=== PATIENT | female | born 1980 | race Hispanic/Latino ===

== ENCOUNTER 2023-12-16 13:25 | Emergency (ER) | payer SELFPAY ==
--- NOTE | 2023-12-16 13:48 | ED.WOUNDLAC ---
HPI - Wound/Laceration General Chief Complaint: Wound/Laceration Stated Complaint: R FOREARM LACERATION Time Seen by Provider: 12/16/23 14:13 Source: patient and other (friend at bedside) Mode of arrival: ambulatory Limitations: language barrier ( patient refused interpreting service. Friend at bedside to help interpret) History of Present Illness HPI narrative: 43-year-old patient presents to [facility] with complaint of laceration to right mid dorsal forearm. 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 While putting items on a shelf above her head, patient dropped a glass bowl with a glass lid. Patient endorses that the lid broke when it struck her arm and caused a laceration. 5cm laceration to right mid dorsal forearm with 3cm skin tear. Bleeding controlled upon arrival. Patient endorses no history of tetanus. Patient denies tingling, numbness, decreased range of motion. Patient does endorse pain at the laceration site. Patient has not treated prior to arrival. Related Data Home Medications Medication Instructions Recorded Confirmed No Home Medications 12/16/23 12/16/23 Allergies Allergy/AdvReac Type Severity Reaction Status Date / Time No Known Allergies Allergy Verified 12/16/23 13:32 Review of Systems Review of Systems: All systems reviewed & are unremarkable except as noted in HPI and below Constitutional: Constitutional: Reports no additional constitutional complaints Eyes: Eyes: Reports no additional eye complaints ENT: Reports system reviewed and no additional complaints, except as documented Cardiovascular: Cardiovascular: Reports no additional cardiovascular complaints, Denies chest pain and Denies dyspnea Respiratory: Respiratory: Reports no additional respiratory complaints, Denies cough and Denies dyspnea Musculoskeletal: Musculoskeletal: Reports no additional musculoskeletal complaints Neurologic: Reports system reviewed and no additional complaints, except as documented Psychiatric: Psychiatric: Reports no additional psychiatric complaints PMFSH Comments At the time of my signature, I reviewed and agree with the nursing past medical, surgical, social, and family history. There is no relevant family history pertinent to the patient complaint. 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 Friend at bedside helped interpret ) HENMT: Head: normal to inspection Ears: external ears normal Face/Nose/Sinus: Normal external nose present, Normal nares present, normal facial exam, No erythema and No edema Face and sinus: normal facial exam, no erythema and no edema Mouth: Yes Normal oral and palatal mucosa present Eyes: General: appearance normal, both eyes and all related structures Neck: Neck: normal visual inspection, full ROM and no meningeal signs Lymphatic: no lymphadenopathy noted and no lymphedema noted Chest: Chest palpation & inspection: normal inspection of the chest Resp: Effort & Inspection: normal respiratory effort and able to speak in complete sentences Auscultation: clear to auscultation bilaterally Cardio: Jugular venous distension: no JVD Rate: regular rate Rhythm: regular rhythm Peripheral pulses: radial pulses present and ulnar radial pulses present Back/Spine/Pelvis: Cervical Spine: cervical ROM normal Skin: General skin exam: normal color, no rashes or lesions noted and turgor normal Neuro: General: patient oriented x3, gait normal, moves all extremities and no meningeal signs Speech: normal speech Gait exam (Neuro): Normal gait present Extrem: General: normal to inspection, full ROM and capillary refill normal Right upper extremity: full ROM, normal capillary refill, elbow/forearm tender
[2023-12-16 13:59] VITALS: BP 118/74; PULSE 95; RESP 16; TEMP 36.8; O2SAT 100
[2023-12-16] MEDS: TETANUS,DIPHTHERIA,AC PERTUSSIS ADULT (0.5 ML) BOOSTRIX IM (15:59)
--- NOTE | 2023-12-16 16:00 | PC.NURSE ---
Boostrix was scanned in patient room, but forgot to click the last save. Patient was discharged when I discovered this.
== END 2023-12-16 15:13 | disposition home or self-care (01) ==
PROVIDERS: Emergency Provider Nurse Practitioner Family
DX: S51.811A Laceration without foreign body of right forearm, initial encounter (principal); W25.XXXA Contact with sharp glass, initial encounter; Y99.0 Civilian activity done for income or pay; Z23 Encounter for immunization
CPT/HCPCS: 12002; 90471; 90715; 99212; G0463

== ENCOUNTER 2023-12-26 18:40 | Emergency (ER) | payer SELFPAY ==
--- NOTE | 2023-12-26 18:44 | ED.WOUNDLAC ---
HPI - Wound/Laceration General Chief Complaint: Wound/Laceration Stated Complaint: Stitches Removal Time Seen by Provider: 12/26/23 18:43 Source: patient Mode of arrival: ambulatory Limitations: no limitations History of Present Illness HPI narrative: Selene is a 43-year-old female patient presenting to clinic today for suture removal. Has laceration to the mid dorsal forearm that occurred on December 15. She denies any concerns. Related Data Home Medications Medication Instructions Recorded Confirmed No Home Medications 12/16/23 12/26/23 Allergies Allergy/AdvReac Type Severity Reaction Status Date / Time No Known Allergies Allergy Verified 12/16/23 13:32 Review of Systems Review of Systems: Pertinent positives per HPI. Patient denies any fever, chills, rash, headache, visual changes, dizziness, cough, runny nose, sore throat, shortness of breath, chest pain, palpitations, nausea, vomiting, diarrhea, constipation, abdominal pain, or any urinary issues. PMFSH Comments At the time of my signature, I reviewed and agree with the nursing past medical, surgical, social, and family history. There is no relevant family history pertinent to the patient complaint. Exam Narrative: General: Well-developed, well nourished, in no apparent distress Head: Normocephalic, atraumatic. Cardio: Regular rate and rhythm, s1 and s2 normal, no murmur appreciated. Resp: Clear to auscultation bilaterally, no rhonchi, rales, wheezing or rubs. Integumentary: [place], warm, and dry, sutures were removed from the right forearm and wound appears to be healing well. Will apply Steri-Strips over the wound and have the patient keep these in place into the fall off on their own. Course Course Emergency Course: Portions of this record may have been created with voice recognition software. Level of Care: Express Care Visit Vital Signs Vital signs: Vital signs reviewed MDM - Wound/Laceration MDM Narrative Medical decision making narrative: At the time of visit patient is resting comfortably on the exam table. Patient appears to be nontoxic. Plan: Sutures removed in the Express Care today. Steri-Strips were applied. supportive measures were discussed with the patient and they voiced understanding discharge instructions and agrees to treatment plan. Return precautions reviewed Differential Diagnosis Differential diagnosis: Likely laceration, abscess, abrasion and avulsion of skin Discharge Plan Discharge Clinical Impression: Encounter for removal of sutures, Skin wound closed with sterile strip Patient Disposition: Home, Self-Care Condition: Stable Instructions: Antibiotic Form, Laceration (ED), Steristrips (ED), Stitches Removal (ED) Additional Instructions: 4 suturas interrumpidas retiradas en la cl?maci hoy Mantenga Steri-Strips en garcia lugar rachel el mayor tiempo posible No las retire; permita que las Steri-Strips se caigan solas. Izzy un seguimiento con garcia m?dico de atenci?n primaria seg?n sea necesario. Mantenga la herida limpia y seca Est? atento a los signos y s?ntomas de infecci?n: enrojecimiento, mariia, hinchaz?n, secreci?n purulenta o aumento del dolor Patient Language: [place] Prescriptions: No Action No Home Medications Follow-up/Referrals: UNKNOWN,DOCTOR [Non-Staff] - Time of Disposition: 19:09 Quality NIHSS Nursing Documentation ED NIHSS nursing documentation: reviewed/agree
[2023-12-26 18:47] VITALS: BP 118/83; PULSE 86; RESP 16; TEMP 36.6; O2SAT 100
== END 2023-12-26 19:12 | disposition home or self-care (01) ==
PROVIDERS: Emergency Provider Nurse Practitioner Family
DX: S51.811D Laceration without foreign body of right forearm, subsequent encounter (principal); X58.XXXD Exposure to other specified factors, subsequent encounter
CPT/HCPCS: 99211; G0463

== ENCOUNTER 2024-03-06 15:08 | Emergency (ER) | payer SELFPAY ==
[2024-03-06 15:23] VITALS: BP 122/85; PULSE 88; RESP 16; TEMP 36.9; O2SAT 100
--- NOTE | 2024-03-06 15:29 | ECG_ITS ---
SEE SCANNED COPY FOR CONFIRMED REPORT MTDD
--- NOTE | 2024-03-06 15:53 | ED.GENADULT ---
HPI - General Adult General Chief complaint: Chest Pain Stated complaint: chest pain into back left side Time Seen by Provider: 03/06/24 15:54 Source: patient, RN notes reviewed and old records reviewed Mode of arrival: ambulatory Limitations: no limitations History of Present Illness HPI narrative: 43-year-old female presents to the [facility] with worsening pain to the left chest, left flank this since Tuesday, 2 days ago. Patient does report nausea, shortness of breath especially with deep breathing. Offered a design center consultant, patient declined wanting to use her family member Patient appears mildly uncomfortable Onset (ago): day(s) (2) Related Data Home Medications Medication Instructions Recorded Confirmed No Home Medications 12/16/23 03/06/24 Allergies Allergy/AdvReac Type Severity Reaction Status Date / Time No Known Allergies Allergy Verified 03/06/24 15:18 Review of Systems Review of Systems: All systems reviewed & are unremarkable except as noted in HPI and below Constitutional: Constitutional: Reports no additional constitutional complaints Eyes: Eyes: Reports no additional eye complaints ENT: Reports system reviewed and no additional complaints, except as documented Cardiovascular: Cardiovascular: Reports as per HPI, Reports chest pain and Reports dyspnea Respiratory: Respiratory: Reports no additional respiratory complaints, Denies chest congestion, Denies cough and Denies dyspnea Gastrointestinal: Gastrointestinal: Reports no additional gastrointestinal complaints, Denies abdominal pain, Denies nausea and Denies vomiting Genitourinary: Genitourinary: Reports as per HPI and Denies dysuria Musculoskeletal: Musculoskeletal: Reports as per HPI Integumentary/Breasts: Skin/Breast: Reports system reviewed and no additional complaints, except as docu Neurologic: Reports system reviewed and no additional complaints, except as documented Psychiatric: Psychiatric: Reports no additional psychiatric complaints Allergic/Immunologic: Allergic/Immunologic: Reports no additional allergic/immunologic complaints PMFSH Past Medical History Medical History Patient denies medical problems Surgical History Surgical History No pertinent past surgical history Social History Social History Living arrangements: with family Gender identity (if verbalized by the patient): Female Comments At the time of my signature, I reviewed and agree with the nursing past medical, surgical, social, and family history. There is no relevant family history pertinent to the patient complaint. Exam Const: General: cooperative, no acute distress, well developed, alert, acute distress moderate (Pain), ill appearing acutely, uncomfortable and well nourished Nutritional Appearance: well nourished Orientation/consciousness: patient oriented x3 Limitations: no limitations HENMT: Head: normal to inspection Ears: hearing grossly normal bilaterally and external ears normal Face/Nose/Sinus: Normal external nose present, Normal nares present, Normal nasal mucous membranes and turbinates present, normal facial exam and face symmetric Face and sinus: normal facial exam and face symmetric Eyes: General: appearance normal, both eyes and all related structures Alignment and Position: alignment normal Periorbital: periorbital findings normal Pupils: Equal, round and reactive pupils present EOM: EOMs intact bilaterally Neck: Neck: normal visual inspection, full ROM, no lymphadenopathy and no meningeal signs Chest: Chest palpation & inspection: normal inspection of the chest Resp: Effort & Inspection: normal respiratory effort and able to speak in complete sentences Auscultation: clear to auscultation bilaterally, no crackles, no rales, no rhonchi and no wheezes Cardio:
== END 2024-03-06 16:10 | disposition short-term general hospital (02) ==
PROVIDERS: Emergency Provider Nurse Practitioner
DX: R10.9 Unspecified abdominal pain (principal); R07.9 Chest pain, unspecified
CPT/HCPCS: 81003; 93005; 99213; G0463

== ENCOUNTER 2024-03-06 16:25 | Observation (INO) | payer SELFPAY ==
--- NOTE | ~2024-03-06 | XR_ITS ---
EXAMINATION: XR chest 2V DATE: 03/06/2024 16:47 INDICATION: Left-sided chest pain TECHNIQUE: PA and lateral views of the chest were obtained. COMPARISON: None FINDINGS: The lungs are clear with no focal airspace opacities, pulmonary edema, pleural effusion or pneumothor ax. The cardiomediastinal silhouette is normal. Mild thoracic dextrocurvature with mild spondylosis. IMPRESSION: 1. No acute cardiopulmonary disease. Reviewed, dictated and finalized at location A.
--- NOTE | ~2024-03-06 | CT_ITS ---
EXAMINATION: CT abdomen pelvis wo con DATE: 03/06/2024 20:59 INDICATION: Left flank pain TECHNIQUE: Computed tomography (CT) of the abdomen and pelvis was performed without intravenous contr ast. Automated exposure control and iterative reconstruction technique were employed. The dose-length product was 229.98 mGy-cm. COMPARISON: None FINDINGS: Mild discoid atelectasis at the left lung base. Heart size normal. No pericardial or pleural effusion . Peripherally calcified gallstone at the fundus of the normal-appearing gallbladder. Liver, spleen, bilateral adrenal glands and kidneys are normal. 1.5 cm cystic lesion at the body of the pancreas. No bowel obstruction. Bladder, anteverted uterus and right adnexa are normal. 1.8 cm low-attenuation le ft adnexal cyst/follicle. No free intraperitoneal gas or fluid. No pathologically enlarged abdominal or pelvic lymphadenopathy. Mild lumbar levocurvature with mild spondylosis. IMPRESSION: 1. No acute intra-abdominal/pelvic process. 2. Indeterminate 1.5 cm cystic lesion at the body of the pancreas. The differential diagnosis include s pseudocyst, intraductal papillary mucinous neoplasm (IPMN), mucinous cystic neoplasm (MCN), and the less common serous cystadenoma and neuroendocrine tumor. Correlate for history of pancreatitis and w ould recommend further evaluation with follow-up pre and postcontrast MRI. 3. Cholelithiasis. Reviewed, dictated and finalized at location A. IMPRESSION: 1. No acute intra-abdominal/pelvic process. 2. Indeterminate 1.5 cm cystic lesion at the body of the pancreas. The differen tial diagnosis includes pseudocyst, intraductal papillary mucinous neoplasm (IP MN), mucinous cystic neoplasm (MCN), and the less common serous cystadenoma and neuroendocrine tumor. Correlate for history of pancreatitis and would recommen d further evaluation with follow-up pre and postcontrast MRI. 3. Cholelithiasis.
--- NOTE | ~2024-03-06 | MR_ITS ---
EXAMINATION: MR MRCP wo/w con/w 3D wo ind DATE: 03/07/2024 13:15 INDICATION: Pancreatic mass. TECHNIQUE: Magnetic resonance imaging (MRI) of the abdomen was performed without and with 12 mL Multi Lorri intravenous contrast. Sequences included coronal T2-weighted FS FSE, coronal T2-weighted FSE, a xial T1-weighted LAVA, coronal FS FIESTA, axial dual-echo T1-weighted SPGR, coronal lava-FLEX, sagitt al T2-weighted FSE, axial T2-weighted FSE, and axial DWI. Thick-slab T2-weighted FSE images were obta ined for magnetic resonance cholangiopancreatography (MRCP). Maximum intensity projection 3-D reconst ructions of the volumetric data were created by the technologist. Postcontrast sequences included cor onal LAVA-flex and time course of axial T1-weighted LAVA. COMPARISON: CT abdomen and pelvis 03/06/2024 FINDINGS: ABDOMEN MRI: The liver and spleen are normal. There is a gallstone in the gallbladder, which is jesus l in size. There is a 1.7 cm cystic lesion in the body of the pancreas with peripheral nodular hypoen hancing component. The pancreatic duct is normal in caliber. The adrenal glands are normal. There are cysts in right kidney measuring up to 12 mm. There is cortical cortical thinning of left kidney. The re are no dilated loops of bowel. ABDOMEN MRCP: The common duct is normal and measures 5 mm. No choledocholithiasis. IMPRESSION: 1. 1.7 cm cystic lesion in the body of the pancreas with peripheral nodular hypoenhancing component ( which is a high risk feature). The differential diagnosis includes pseudocyst, intraductal papillary mucinous neoplasm (IPMN), mucinous cystic neoplasm (MCN), serous cystadenoma, and neuroendocrine tumo r. Surgical consultation is recommended. 2. Cholelithiasis. Reviewed, dictated and finalized at location A. IMPRESSION: 1. 1.7 cm cystic lesion in the body of the pancreas with peripheral nodular hyp oenhancing component (which is a high risk feature). The differential diagnosis includes pseudocyst, intraductal papillary mucinous neoplasm (IPMN), mucinous cystic neoplasm (MCN), serous cystadenoma, and neuroendocrine tumor. Surgical c onsultation is recommended. 2. Cholelithiasis.
[2024-03-06 16:26] VITALS: BP 134/76; PULSE 87; RESP 20; TEMP 36.7; O2SAT 100
--- NOTE | 2024-03-06 16:26 | ECG_ITS ---
SEE SCANNED COPY FOR CONFIRMED REPORT MTDD
[2024-03-06 16:43] LABS: Basophils Absolute Auto 0.1 K/mm3 (0.0-0.1); Basophils Percent Auto 0.8 % (0.2-1.2); Eosinophils Absolute Auto 0.3 K/mm3 (0-0.3); Eosinophils Percent Auto 3.7 % (0-4.4); Hematocrit 35.1 % (37.0-47.0); Hemoglobin 10.5 g/dL (12.0-15.0); Immature Granulocyte Absolute 0.02 K/mm3 (0.00-0.031); Immature Granulocyte Percent A 0.2 % (0-0.5); Lymphocytes Absolute Auto 2.11 K/mm3 (0.9-3.2); Lymphocytes Percent Auto 25.4 % (18.3-44.2); Mean Corpuscular HGB Conc 29.9 g/dl (32-36); Mean Corpuscular Hemoglobin 22.5 pg (26-34); Mean Corpuscular Volume 75.2 fl (80-100); Mean Platelet Volume 8.9 fl (7.4-10.4); Monocytes Percent Auto 11.9 % (2.6-8.5); Neutrophils Absolute Auto 4.8 K/mm3 (1.3-6.7); Platelet Count Result 510 k/mm3 (150-375); Red Blood Count 4.67 M/mm3 (4.2-5.4); Red Cell Distribution Width 17.8 % (11.5-14.5); White Blood Count 8.3 K/mm3 (4.5-10.0)
[2024-03-06 16:53] LABS: Alanine Aminotransferase 28 U/L (6-35); Albumin Level 4.4 g/dL (3.5-5.1); Alkaline Phosphatase 65 U/L (38-126); Anion Gap 10 mmol/L (4-12); Aspartate Amino Transferase 29 U/L (14-36); Bilirubin,Total 0.4 mg/dL (0.2-1.3); Blood Urea Nitrogen 8 mg/dL (7-17); Calcium 9.1 mg/dL (8.4-10.2); Carbon Dioxide 23 mmol/L (22-30); Chloride 107 mmol/L (98-107); Estimated CRCL calculation 63 ml/min; Estimated Glomerular Filt Rate > 60; Glucose 79 mg/dL (65-110); Lipase 64 U/L (23-300); Potassium 3.7 mmol/L (3.4-5.0); Prothrombin Time 13.3 Seconds (11.1-14.7); Sodium 140 mmol/L (137-145)
[2024-03-06 16:54] LABS: Partial Thromboplastin Time 27.1 Seconds (22.3-36.8)
[2024-03-06 17:02] LABS: Hypochromasia 2+; Platelet Estimate Increased (Adequate); Schistocytes None Seen
[2024-03-06 17:05] LABS: Troponin I < 0.012 ng/mL (0.000-0.034)
--- NOTE | 2024-03-06 20:12 | ED.CHESTPAIN ---
HPI - Chest Pain General Chief Complaint: Chest Pain Stated Complaint: chest pain Time Seen by Provider: 03/06/24 19:34 History of Present Illness HPI narrative: Patient is a 43-year-old female who presents the emergency department this evening complaining of left flank/left upper quadrant abdominal pain. Patient states that the pain started on Tuesday and has been progressively getting worse. She tried to take ibuprofen at home with no relief. Patient states that today the pain was a 9/10 and she decided to come to the ED for further evaluation. She denies any history of similar pain and denies any past medical history stating that she does not take any medications for anything. Patient denies any nausea or vomiting, any urinary symptoms, any history of kidney stones and denies any additional symptoms or concerns at this time. Related Data Home Medications Medication Instructions Recorded Confirmed No Home Medications 12/16/23 03/07/24 Allergies Allergy/AdvReac Type Severity Reaction Status Date / Time No Known Allergies Allergy Verified 03/06/24 15:18 Review of Systems Review of Systems: All systems are reviewed and are negative unless stated otherwise in the HPI. [facility] Past Medical History Medical History Patient denies medical problems Surgical History Surgical History No pertinent past surgical history Social History Social History Smoking status: Never smoker Alcohol intake: never Substance use: never Substance use type: does not use Do You Feel Safe in your Home?: Yes Lack of Transportation: No Lack of Food: Never True Current Housing: I Have Housing Concerned About Future Housing: No Difficulty Paying Gas/Electric Bills: No Difficulty Paying for Meds: No Currently Unemployed: No Education: High School Diploma/GED Difficulty w/ Childcare or Family Care: No Living arrangements: with family Gender identity (if verbalized by the patient): Female Spiritual care concerns: No Exam Narrative: General: Alert, awake, afebrile, in mild distress. HEENT: PERRL, no rhinorrhea, no post nasal drip, oropharynx clear. Cardiovascular: Regular rate and rhythm, no murmurs, rubs or gallops, no peripheral edema. Respiratory: Clear to auscultation bilaterally, no tachypnea, no wheezing, no rhonchi, no rubs, no respiratory distress. Abdomen: Soft, nontender, nondistended, no rebound, no guarding, no peritoneal signs. Musculoskeletal: No joint swelling or deformity, normal muscle tone. Skin: No rashes or petechia, no signs of infection. Neurological: Alert and oriented to person, place, and time. Follows all commands. No focal deficits, speech is clear and fluent. Course Vital Signs Vital signs: Vital Signs Temperature 98.1 F 03/06/24 16:26 Pulse Rate 87 03/06/24 16:26 Respiratory Rate 20 03/06/24 16:26 Blood Pressure 134/76 03/06/24 16:26 Pulse Oximetry 100 03/06/24 16:26 Oxygen Delivery Room Air 03/06/24 16:26 Temperature 97.5 F L 03/06/24 23:55 Pulse Rate 71 03/06/24 23:55 Respiratory Rate 17 03/06/24 23:55 Blood Pressure 121/80 03/06/24 23:55 Pulse Oximetry 100 03/06/24 23:55 Oxygen Delivery Room Air 03/07/24 00:00 MDM - Chest Pain MDM Narrative Medical decision making narrative: The patient was evaluated by myself in the emergency department. History is obtained from patient who is an independent historian and physical exam was performed. External medical records were reviewed at this time. IV was established and pertinent tests were ordered. Patient was administered 4 mg of IV morphine for pain and 4 mg of IV Zofran for nausea. She was also started on 1 L IV fluid bolus with normal saline. EKG was obtained which revealed sinus rhythm rate of 80 her
[2024-03-06] MEDS: ASPIRIN 81 MG CHEWABLE TABLET 324 MG PO (20:37)
[2024-03-06] MEDS: MORPHINE SULFATE (*CRX) 4 MG/ML INJ IV PUSH (22:03)
[2024-03-06] MEDS: ONDANSETRON INJ 4 MG/2 ML VIAL IV PUSH (22:03)
[2024-03-06] MEDS: SODIUM CHLORIDE 0.9% IV 1,000 ML 999 ML IV CONT (22:03)
[2024-03-06 22:11] LABS: Appearance Urine Clear (Clear); Bilirubin Urine Negative (Negative); Blood Urine Negative (Negative); Color Urine Yellow (Yellow); Glucose Urine UA Negative (Negative); Ketones Urine Negative (Negative); Leukocyte Esterase Ur Negative LEU/UL (Negative); Nitrate Urine Negative (Negative); Protein Urine Negative (Negative); Specific Grav Ur 1.023 (1.001-1.035); Urobilinogen Urine 0.2 mg/dL (<2.0); pH Urine 5.5 (5.0-9.0)
[2024-03-06 22:13] VITALS: PULSE 84
[2024-03-06 22:14] VITALS: O2SAT 100
[2024-03-06 22:18] LABS: Add Urine Microscopic? NO
[2024-03-06 22:20] VITALS: BP 127/81; PULSE 81; RESP 16; O2SAT 99
[2024-03-06 22:57] LABS: Troponin I < 0.012 ng/mL (0.000-0.034)
--- NOTE | 2024-03-06 23:16 | PM.IMHP ---
H&P: HPI History of Present Illness Date/Time: 03/06/24 23:16 Chief Complaint: Left flank pain Narrative: this patient 43-year-old female came to the hospital complaining of left upper quadrant pain. Patient states that the pain got worse for the last week and patient had some ibuprofen at home and also took some Tylenol with minimal relief patient rates pain at 9/10. No history of any gallstones Culturelle bulges noticed nausea vomiting or diarrhea no recent travel no history of any kidney stones no history of any exposure to any bad food. Patient has family history of leukemia n0 history of pancreatitis or pancreatic head PMFSH Past Medical History Medical History Patient denies medical problems Surgical History Surgical History No pertinent past surgical history Social History Social History Living arrangements: with family Gender identity (if verbalized by the patient): Female Meds Home Medications and Allergies Home Medications Medication Instructions Recorded Confirmed Type No Home Medications 12/16/23 03/06/24 History Allergies Allergy/AdvReac Type Severity Reaction Status Date / Time No Known Allergies Allergy Verified 03/06/24 15:18 Vital Signs Vital Signs - 24 hr 03/06/24 16:26 03/06/24 22:13 03/06/24 22:14 Temperature 36.7 C Pulse Rate 87 84 Respiratory Rate 20 Blood Pressure 134/76 Pulse Oximetry 100 100 Oxygen Delivery Room Air Room Air 03/06/24 22:20 Temperature Pulse Rate 81 Respiratory Rate 16 Blood Pressure 127/81 Pulse Oximetry 99 Oxygen Delivery Exam Narrative: GENERAL: Well appearing, no acute distress. HEAD: Normocephalic, atraumatic. NECK: Supple. No adenopathy, no masses. RESPIRATORY: respirations nonlabored. , no rales, wheezing. CARDIOVASCULAR: Regular rate and rhythm without murmurs, . Peripheral pulses 2+ and equal bilaterally. ABDOMINAL: Soft, tender, distended, no hepatosplenomegaly. Normoactive BS. MUSCULOSKELETAL: no Epigastric and no hypochondrial tenderness SKIN: Warm, dry, NEURO: A&O X3. Moves all extremities H&P: Results Labs Labs: Short CBC 03/06/24 Range/Units 16:36 WBC 8.3 (4.5-10.0) K/mm3 Hgb 10.5 L (12.0-15.0) g/dL Hct 35.1 L (37.0-47.0) % Plt Count 510 H (150-375) k/mm3 BMP 03/06/24 16:36 Sodium 140 Potassium 3.7 Chloride 107 Carbon Dioxide 23 BUN 8 Creatinine 0.80 Glucose 79 Calcium 9.1 Cardiac Enzymes 03/06/24 03/06/24 Range/Units 16:36 22:16 Troponin I < 0.012 < 0.012 (0.000-0.034) ng/mL Liver Function 03/06/24 Range/Units 16:36 Total Bilirubin 0.4 (0.2-1.3) mg/dL AST 29 (14-36) U/L ALT 28 (6-35) U/L Alkaline Phosphatase 65 (38-126) U/L Albumin 4.4 (3.5-5.1) g/dL Urine 03/06/24 Range/Units 20:35 Urine Color Yellow (Yellow) Urine Appearance Clear (Clear) Urine pH 5.5 (5.0-9.0) Ur Specific [place] 1.023 (1.001-1.035) Urine Protein Negative (Negative) mg/dL Urine Glucose (UA) Negative (Negative) mg/dL Assessment and Plan Assessment and plan (1) Pancreas cyst: Code(s): K86.2 - Cyst of pancreas Status: Acute (2) Acute left flank pain: Code(s): R10.9 - Unspecified abdominal pain Status: Acute (3) Left-sided chest pain: Code(s): R07.9 - Chest pain, unspecified Status: Acute (4) Acute left flank pain: Code(s): R10.9 - Unspecified abdominal pain Status: Acute Plan NPO. GI consult and warning workup for pancreatic mass/ pseudocyst pain control. continue nausea medication of Zofran IV hydration. monitor serum lipase amylase and LFTs. will need ERCP/ MRI once better Attestation Student Attestation DVT prophylaxis. SCD GI prophylaxis.
[2024-03-06 23:36] VITALS: BP 121/73; PULSE 69; RESP 17; O2SAT 100
[2024-03-06 23:55] VITALS: BP 121/80; PULSE 71; RESP 17; TEMP 36.4; O2SAT 100; BMI 21.2
[2024-03-07 00:07] LABS: Alanine Aminotransferase 27 U/L (6-35); Albumin Level 4.2 g/dL (3.5-5.1); Alkaline Phosphatase 71 U/L (38-126); Anion Gap 10 mmol/L (4-12); Aspartate Amino Transferase 30 U/L (14-36); Bilirubin,Total 0.4 mg/dL (0.2-1.3); Blood Urea Nitrogen 9 mg/dL (7-17); Calcium 8.7 mg/dL (8.4-10.2); Carbon Dioxide 19 mmol/L (22-30); Chloride 108 mmol/L (98-107); Estimated CRCL calculation 82 ml/min; Estimated Glomerular Filt Rate > 60; Glucose 87 mg/dL (65-110); Lipase 68 U/L (23-300); Sodium 137 mmol/L (137-145)
--- NOTE | 2024-03-07 00:10 | ADMGEN ---
This patient, Selene Mcdermott, was admitted to Medical Room 253-01. Patient/family oriented to hospital policies and general routines including ID bracelet, bed and alarms, visiting hours, pain management, procedures, bathroom and other care routines, personal items, smoking policy, room service/diet, and visiting hours. Information on how to activate the Rapid Response Team has been discussed. Patient/Family are encouraged to report perceived risks to care and to ask questions if they do not understand what they are told or what they should do.
[2024-03-07] MEDS: LACTATED RINGERS 1,000 ML 125 ML IV CONT ×3 (00:28→19:57)
[2024-03-07 00:52] LABS: Basophils Absolute Auto 0.1 K/mm3 (0.0-0.1); Basophils Percent Auto 0.9 % (0.2-1.2); Eosinophils Absolute Auto 0.2 K/mm3 (0-0.3); Eosinophils Percent Auto 3.3 % (0-4.4); Hematocrit 31.9 % (37.0-47.0); Hemoglobin 9.7 g/dL (12.0-15.0); Immature Granulocyte Absolute 0.03 K/mm3 (0.00-0.031); Immature Granulocyte Percent A 0.4 % (0-0.5); Lymphocytes Absolute Auto 2.02 K/mm3 (0.9-3.2); Lymphocytes Percent Auto 28.8 % (18.3-44.2); Mean Corpuscular HGB Conc 30.4 g/dl (32-36); Mean Corpuscular Hemoglobin 22.8 pg (26-34); Mean Corpuscular Volume 75.1 fl (80-100); Mean Platelet Volume 9.2 fl (7.4-10.4); Monocytes Absolute Auto 0.6 K/mm3 (0.1-0.6); Monocytes Percent Auto 8.5 % (2.6-8.5); Neutrophils Absolute Auto 4.1 K/mm3 (1.3-6.7); Neutrophils Percent Auto 58.1 % (45.5-73.1); Platelet Count Result 434 k/mm3 (150-375); Red Blood Count 4.25 M/mm3 (4.2-5.4); Red Cell Distribution Width 17.6 % (11.5-14.5)
[2024-03-07] MEDS: ONDANSETRON INJ 4 MG/2 ML VIAL IV PUSH ×3 (03:59→15:33)
[2024-03-07] MEDS: MORPHINE SULFATE (*CRX) 2 MG/ML INJ IV PUSH ×2 (04:00→09:13)
[2024-03-07 05:01] VITALS: BP 114/85; PULSE 80; RESP 18; TEMP 36.6; O2SAT 99
[2024-03-07 08:00] VITALS: BP 131/74; PULSE 75; RESP 20; TEMP 36.4; O2SAT 98
--- NOTE | 2024-03-07 08:22 | PM.IMPN ---
Progress Note: A&P Assessment and Plan (1) Pancreas cyst: Code(s): K86.2 - Cyst of pancreas Status: Acute Assessment and Plan: Abdomen/pelvis CT showed no acute intra-abdominal/pelvic process, indeterminate 1.5 cm cystic lesion at the body of the pancreas, cholelithiasis GI consulted MRCP with and without contrast today (2) Acute left flank pain: Code(s): R10.9 - Unspecified abdominal pain Status: Acute Assessment and Plan: Continue pain control (3) Herpes zoster: Code(s): B02.9 - Zoster without complications Status: Acute Assessment and Plan: Raised rash that appears to be early shingles, patient reporting left flank pain that is sharp and burning. Rash appears on left flank and under left breast. Valacyclovir ordered TID for 5 days Time Spent With Patient Time with patient: 25 - 35 minutes Subjective Date/time seen: 03/07/24 08:22 Interval history: This is a 43-year-old male presented to the hospital on 03/06/2024 with complaints of left flank pain. Workup in the hospital included a chest x-ray which was negative. Abdomen pelvis CT was negative for any intra-abdominal/pelvic process, indeterminate 1.5 cm cystic lesion at the body of the pancreas, cholelithiasis. Initial labs showed a normal white blood cell count of 8.3, hemoglobin 10.5, troponin was negative, lipase was 64. A UA was obtained and was negative for bacteria. Patient was given 1 L of normal saline morphine and Zofran in the ED. On examination today patient is alert and oriented x3, lying in the bed. Patient denies any fever, chills, vomiting, diarrhea, abdominal pain, chest pain or shortness of breath. Patient endorses left flank pain that feels sharp and burning across her ribs, nausea, and headache. Labs today showed a hemoglobin of 9.7 otherwise unremarkable. Plan for abdominal MRCP with and without contrast today and GI consulted. Patient was noted to have the start of shingles on her left flank and under her left breast in the area where she is complaining of pain. She states that she recently had a rash that was all over her body that itched but that went away and then she developed flank pain. She was started on valcyclovir TID for the next 5 days. MRCP is still pending. Review of Systems Review of Systems: All systems reviewed & are unremarkable except as noted in HPI and below Constitutional: Constitutional: Reports as per HPI and Reports no additional constitutional complaints Eyes: Eyes: Reports as per HPI and Reports no additional eye complaints ENT: Reports system reviewed and no additional complaints, except as documented and Reports as per HPI Cardiovascular: Cardiovascular: Reports as per HPI and Reports no additional cardiovascular complaints Respiratory: Respiratory: Reports as per HPI and Reports no additional respiratory complaints Gastrointestinal: Gastrointestinal: Reports as per HPI and Reports no additional gastrointestinal complaints Genitourinary: Genitourinary: Reports no additional female genitourinary complaints and Reports as per HPI Musculoskeletal: Musculoskeletal: Reports no additional musculoskeletal complaints and Reports as per HPI Integumentary/Breasts: Skin/Breast: Reports system reviewed and no additional complaints, except as docu and Reports as per HPI Neurologic: Reports system reviewed and no additional complaints, except as documented and Reports as per HPI Psychiatric: Psychiatric: Reports no additional psychiatric complaints and Reports as per HPI Exam Narrative: General: In no acute distress, well nourished, setswana speaking Head: atraumatic, no encephalopathy Eyes: EOMI, PERRLA, sclera clear ENT: moist mucous membranes, nasal passages clear, reports headache Neck: supple, no JVD, no adenopathy, trachea midline Cardiac: Normal S1 and S2. RRR No murmur, gallops or friction rubs, peripheral pulses intact. Respiratory: Lungs clear to auscu
[2024-03-07 14:00] VITALS: BP 121/68; PULSE 78; RESP 14; TEMP 36.3; O2SAT 98
--- NOTE | 2024-03-07 14:21 | WPDGICN ---
Assessment and Plan Assessment and plan (1) Rash and nonspecific skin eruption: Code(s): R21 - Rash and other nonspecific skin eruption Status: Acute Assessment and Plan: physical exam ? shingles at site of discomfort- probably this is reason of her symptom sometimes pain and tingling/itching can start before rash- initially she did not mention itching but when I asked her she told me that just recently noticed some (2) Acute left flank pain: Code(s): R10.9 - Unspecified abdominal pain Status: Acute Assessment and Plan: ? shingles (3) Pancreas cyst: Code(s): K86.2 - Cyst of pancreas Status: Acute Assessment and Plan: small size and this can follow-up as outpatient, probably can get EUS as outpatient to have better understanding on etiology normal liver enzymes (4) Nausea: Code(s): R11.0 - Nausea Status: Acute Assessment and Plan: ok to advance diet (5) Anemia: Code(s): D64.9 - Anemia, unspecified Status: Acute Assessment and Plan: no baseline probably can have scopes as outpatient GI Consult Note Consult date/time: 03/07/24 14:21 Reason for consult: left flank pain, nausea, pancreatic cyst HPI: Selene Mcdermott is a 43 year old female here with new onset of severe pain in chest but now mostly in left flank, pain is constant and did not go any better, also had some nausea. Never had EGD. CT scan here showed cholelithiasis, incidental finding of pancreatic cyst 1.5 body of pancreas, normal wbc and negative troponin, hgb 10, normal liver enzymes. Review of Systems Constitutional: Constitutional: Denies night sweats Eyes: Eyes: Denies blurry vision ENT: Reports Normal hearing present Cardiovascular: Cardiovascular: Reports chest pain Respiratory: Respiratory: Denies cough Gastrointestinal: Gastrointestinal: Reports abdominal pain (left flank) Genitourinary: Genitourinary: Denies hematuria Musculoskeletal: Comments: left flank pain Integumentary/Breasts: Skin/Breast: Reports pruritus Neurologic: Denies confusion Psychiatric: Psychiatric: Denies behavioral changes and Denies confusion PMFSH Past Medical History Medical History (Updated 03/07/24 @ 14:25 by Huber Young MD) Anemia Nausea Patient denies medical problems Rash and nonspecific skin eruption Surgical History Surgical History No pertinent past surgical history Social History Social History Smoking status: Never smoker Alcohol intake: never Substance use: never Substance use type: does not use Do You Feel Safe in your Home?: Yes Lack of Transportation: No Lack of Food: Never True Current Housing: I Have Housing Concerned About Future Housing: No Difficulty Paying Gas/Electric Bills: No Difficulty Paying for Meds: No Currently Unemployed: No Education: High School Diploma/GED Difficulty w/ Childcare or Family Care: No Living arrangements: with family Gender identity (if verbalized by the patient): Female Spiritual care concerns: No Meds Home Medications and Allergies Home Medications Medication Instructions Recorded Confirmed Type No Home Medications 12/16/23 03/07/24 History Allergies Allergy/AdvReac Type Severity Reaction Status Date / Time No Known Allergies Allergy Verified 03/06/24 15:18 Vital Signs Vital Signs - 24 hr 03/06/24 16:26 03/06/24 22:13 03/06/24 22:14 Temperature 98.1 F Pulse Rate 87 84 Respiratory Rate 20 Blood Pressure 134/76 Pulse Oximetry 100 100 Oxygen Delivery Room Air Room Air 03/06/24 22:20 03/06/24 23:36 03/06/24 23:55 Temperature 97.5 F L Pulse Rate 81 69 71 Respiratory Rate 16 17 17 Blood Pressure 127/81 121/73 121/80 Pulse Oximetry 99 100 100 Oxygen Delivery 03/07/24 00:00 03/07/24
[2024-03-07] MEDS: IBUPROFEN IV 800 MG/200 ML 800 MG/200 ML BAG 400 MG IVPB (15:32)
[2024-03-07] MEDS: valACYclovir HCL 500 MG TABLET 1000 MG PO (19:59)
[2024-03-07] MEDS: ACETAMINOPHEN 325 MG TABLET 650 MG PO (20:01)
[2024-03-07 20:33] VITALS: BP 118/76; PULSE 98; RESP 16; TEMP 37.4; O2SAT 100
[2024-03-07 21:11] VITALS: O2SAT 99
[2024-03-08] MEDS: MORPHINE SULFATE (*CRX) 2 MG/ML INJ IV PUSH ×2 (03:53→13:19)
[2024-03-08] MEDS: LACTATED RINGERS 1,000 ML 125 ML IV CONT ×3 (03:54→21:39)
[2024-03-08] MEDS: valACYclovir HCL 500 MG TABLET 1000 MG PO ×3 (05:04→21:39)
[2024-03-08 05:23] VITALS: BP 118/71; PULSE 83; RESP 16; TEMP 36.4; O2SAT 98
[2024-03-08 05:34] LABS: Basophils Percent Auto 0.4 % (0.2-1.2); Eosinophils Absolute Auto 0.1 K/mm3 (0-0.3); Eosinophils Percent Auto 0.9 % (0-4.4); Hematocrit 29.7 % (37.0-47.0); Hemoglobin 9.2 g/dL (12.0-15.0); Immature Granulocyte Absolute 0.02 K/mm3 (0.00-0.031); Immature Granulocyte Percent A 0.3 % (0-0.5); Lymphocytes Absolute Auto 1.38 K/mm3 (0.9-3.2); Lymphocytes Percent Auto 19.8 % (18.3-44.2); Mean Corpuscular Hemoglobin 22.9 pg (26-34); Mean Corpuscular Volume 74.1 fl (80-100); Mean Platelet Volume 9.1 fl (7.4-10.4); Monocytes Absolute Auto 0.7 K/mm3 (0.1-0.6); Monocytes Percent Auto 9.3 % (2.6-8.5); Neutrophils Absolute Auto 4.8 K/mm3 (1.3-6.7); Neutrophils Percent Auto 69.3 % (45.5-73.1); Platelet Count Result 402 k/mm3 (150-375); Red Blood Count 4.01 M/mm3 (4.2-5.4); Red Cell Distribution Width 17.3 % (11.5-14.5)
[2024-03-08 05:46] LABS: Alanine Aminotransferase 20 U/L (6-35); Albumin Level 3.4 g/dL (3.5-5.1); Alkaline Phosphatase 58 U/L (38-126); Anion Gap 5 mmol/L (4-12); Aspartate Amino Transferase 24 U/L (14-36); Bilirubin,Total 0.3 mg/dL (0.2-1.3); Blood Urea Nitrogen 6 mg/dL (7-17); Calcium 8.6 mg/dL (8.4-10.2); Carbon Dioxide 24 mmol/L (22-30); Chloride 108 mmol/L (98-107); Estimated CRCL calculation 94 ml/min; Estimated Glomerular Filt Rate > 60; Glucose 88 mg/dL (65-110); Potassium 3.5 mmol/L (3.4-5.0); Sodium 137 mmol/L (137-145)
[2024-03-08 06:46] LABS: Anisocytosis 1+; Microcytosis 1+ (NORMAL); Platelet Estimate Slightly Increased (Adequate); Schistocytes None Seen
[2024-03-08] MEDS: IBUPROFEN 600 MG TABLET PO ×2 (10:35→21:40)
[2024-03-08] MEDS: diphenhydrAMINE HCl CAP 25 MG CAPSULE PO (10:36)
--- NOTE | 2024-03-08 11:50 | PM.IMPN ---
Progress Note: A&P Assessment and Plan (1) Pancreas cyst: Code(s): K86.2 - Cyst of pancreas Status: Acute Assessment and Plan: (2) Acute left flank pain: Code(s): R10.9 - Unspecified abdominal pain Status: Acute (3) Herpes zoster: Code(s): B02.9 - Zoster without complications Status: Acute Plan This is a 43-year-old male presented to the hospital on 03/06/2024 with complaints of left flank pain. Workup in the hospital included a chest x-ray which was negative. Abdomen pelvis CT was negative for any intra-abdominal/pelvic process, indeterminate 1.5 cm cystic lesion at the body of the pancreas, cholelithiasis. Initial labs showed a normal white blood cell count of 8.3, hemoglobin 10.5, troponin was negative, lipase was 64. A UA was obtained and was negative for bacteria. Patient was given 1 L of normal saline morphine and Zofran in the ED.She is starting to get some rash in her flank and lower rib area. MRCP Revealed 1.7 cm cystic lesion in the body appendages with peripheral nodular hypoenhancing component. Differential includes pseudocyst intraductal papillary mucinous neoplasm, mucinous cystic neoplasm, serous cystadenoma and neuroendocrine tumor. GI has been consulted. Associated cholelithiasis.These sound like incidental finding with all definitely needs follow-up evaluation as an outpatient basis. GI has been consulted and suggest follow-up as an outpatient probably with EUS. Left flank pain seems to be related to shingles that sees currently having. She has been started on valacyclovir will add Cytosine also add Neurontin 100 mg 3 times a day. Ibuprofen when necessary.Mild anemia noted will thrombocytosis. LFTs all normal. Subjective Date/time seen: 03/08/24 11:50 Interval history: This is a 43-year-old male presented to the hospital on 03/06/2024 with complaints of left flank pain. Workup in the hospital included a chest x-ray which was negative. Abdomen pelvis CT was negative for any intra-abdominal/pelvic process, indeterminate 1.5 cm cystic lesion at the body of the pancreas, cholelithiasis. Initial labs showed a normal white blood cell count of 8.3, hemoglobin 10.5, troponin was negative, lipase was 64. A UA was obtained and was negative for bacteria. Patient was given 1 L of normal saline morphine and Zofran in the ED.She is starting to get some rash in her flank and lower rib area. MRCP Revealed 1.7 cm cystic lesion in the body appendages with peripheral nodular hypoenhancing component. Differential includes pseudocyst intraductal papillary mucinous neoplasm, mucinous cystic neoplasm, serous cystadenoma and neuroendocrine tumor. GI has been consulted. Associated cholelithiasis.These sound like incidental finding with all definitely needs follow-up evaluation as an outpatient basis. GI has been consulted and suggest follow-up as an outpatient probably with EUS. Left flank pain seems to be related to shingles that sees currently having. She has been started on valacyclovir will add Cytosine also add Neurontin 100 mg 3 times a day. Ibuprofen when necessary.Mild anemia noted will thrombocytosis. LFTs all normal. Review of Systems Review of Systems: All systems reviewed & are unremarkable except as noted in HPI and below Exam Narrative: General: In no acute distress, well nourished, hebrew speaking Head: atraumatic, no encephalopathy Eyes: EOMI, PERRLA, sclera clear ENT: moist mucous membranes, nasal passages clear, reports headache Neck: supple, no JVD, no adenopathy, trachea midline Cardiac: Normal S1 and S2. RRR No murmur, gallops or friction rubs, peripheral pulses intact. Respiratory: Lungs clear to auscultation, no adventitious lung sounds, currently on room air Gastrointestinal: soft, non-distended, non-tender, normoactive bowel sounds. Reports nausea : voiding without difficulty. Extremities: moves all extremities well, no edema, good ROM, strength 5/5 Skin:
--- NOTE | 2024-03-08 12:23 | WPDGIPROGNO ---
Progress Note: A&P Assessment and Plan (1) Herpes zoster: Code(s): B02.9 - Zoster without complications Status: Acute Assessment and Plan: this is cause of pain no need of inpatient GI work up management by hospitalist service will set up EUS of pancreas as outpatient (no need of surgical consult right now)- this was discussed with patient (2) Nausea: Code(s): R11.0 - Nausea Status: Acute Assessment and Plan: antiemetics prn (3) Acute left flank pain: Code(s): R10.9 - Unspecified abdominal pain Status: Acute Assessment and Plan: from shingles (4) Pancreas cyst: Code(s): K86.2 - Cyst of pancreas Status: Acute Assessment and Plan: eus as outpatient Subjective Date/time seen: 03/08/24 12:23 Interval history: still with pain in left flank, today even more rash with small blisters c/w shingles, also chills Review of Systems Review of Systems: All systems reviewed & are unremarkable except as noted in HPI and below Exam Const: General: no acute distress Other: pain left flank HENMT: Face/Nose/Sinus: Normal nares present Eyes: General: appearance normal, both eyes and all related structures Neck: Neck: supple Resp: Auscultation: clear to auscultation bilaterally Cardio: Rate: regular rate Rhythm: regular rhythm GI: Inspection: non-distended GI Palp: Yes Soft to palpation and No Tenderness to palpation present (GI) Auscultation: normal bowel sounds Skin: Other: more vesicular rash left flank/left upper site in one dermatome c/w shingles Neuro: Speech: normal speech Motor exam (neuro): 5/5 motor strength present throughout Extrem: General: normal to inspection Psych: Mental Status: mental status grossly normal Objective Data Vital Signs Vital Signs: Vital Signs - 24 hr 03/07/24 14:00 03/07/24 20:33 03/07/24 20:00 Temperature 97.3 F L 99.3 F Pulse Rate 78 98 Respiratory Rate 14 16 Blood Pressure 121/68 118/76 Pulse Oximetry 98 100 Oxygen Delivery Room Air 03/07/24 21:11 03/08/24 05:23 03/08/24 10:00 Temperature 97.6 F Pulse Rate 83 Respiratory Rate 16 Blood Pressure 118/71 Pulse Oximetry 99 98 Oxygen Delivery Room Air Room Air Intake/Output Intake/Output: Intake & Output 03/05/24 03/06/24 03/07/24 03/08/24 23:59 23:59 23:59 23:59 Intake Total 1000 2550 1400 Balance 1000 2550 1400 Meds/Results Medications: Active Medications Generic Name Dose Route Start Last Admin Trade Name Freq PRN Reason Stop Dose Admin Acetaminophen 650 mg 03/06/24 23:22 03/07/24 20:01 Acetaminophen 325 Mg Tablet PO 650 mg Q4H PRN Administration Mild Pain (1-3) or Fever Capsaicin 1 applic 03/08/24 12:00 Capsaicin 0.025% Cream 60 Gm Tube TOPICAL Q6HR ERLINDA Diphenhydramine HCl 25 mg 03/08/24 09:54 03/08/24 10:36 Diphenhydramine Hcl Cap 25 Mg Capsule PO 25 mg Q6H PRN Administration Itching Gabapentin 100 mg 03/08/24 13:00 Gabapentin 100 Mg Capsule PO TID ERLINDA Lactated Ringer's 1,000 mls @ 125 mls/hr 03/06/24 23:00 03/08/24 03:54 Lr - Lactated Ringers Iv IV CONT 125 mls/hr .Q8H ERLINDA Administration Ibuprofen 600 mg 03/08/24 09:54 03/08/24 10:35 Ibuprofen 600 Mg Tablet PO 600 mg Q8HR PRN Administration Moderate Pain (4-6) Morphine Sulfate 2 mg 03/06/24 23:22 03/08/24 03:53 Morphine Sulfate (*Crx) 2 Mg/Ml Inj IV PUSH 2 mg Q4H PRN Administration Pain Rated 7-10 Ondansetron HCl 4 mg 03/06/24 23:22 03/07/24 12:10 Ondansetron Inj 4 Mg/2 Ml Vial IV PUSH 4 mg Q6H PRN Administration Nausea And Vomiting Valacyclovir HCl 1,000 mg 03/07/24 14:40 03/08/24 05:04 Valacyclovir Hcl 500 Mg Tablet PO 03/12/24 06:01 1,000 mg Q8HR ERLINDA Administration Radiology Results: ITS Impressions Chest X-Ray 03/06/24 17:09 IMPRESSION: 1. No acute cardiopulmonary disease.
[2024-03-08] MEDS: CAPSAICIN 0.025% CREAM 60 GM TUBE 1 APPLIC TOPICAL ×2 (12:27→17:22)
[2024-03-08] MEDS: GABAPENTIN 100 MG CAPSULE PO ×2 (12:28→17:21)
[2024-03-08 13:46] VITALS: BP 124/68; PULSE 76; RESP 16; TEMP 36.8; O2SAT 99
[2024-03-08] MEDS: ACETAMINOPHEN 325 MG TABLET 650 MG PO (17:21)
[2024-03-08 20:33] VITALS: BP 123/77; PULSE 90; RESP 18; TEMP 36.6; O2SAT 98
[2024-03-09] MEDS: CAPSAICIN 0.025% CREAM 60 GM TUBE 1 APPLIC TOPICAL ×3 (00:02→13:00)
[2024-03-09] MEDS: ACETAMINOPHEN 325 MG TABLET 650 MG PO ×2 (02:22→09:41)
[2024-03-09] MEDS: LACTATED RINGERS 1,000 ML 125 ML IV CONT (04:42)
[2024-03-09] MEDS: valACYclovir HCL 500 MG TABLET 1000 MG PO ×2 (04:42→12:59)
[2024-03-09] MEDS: IBUPROFEN 600 MG TABLET PO ×2 (04:43→12:58)
[2024-03-09 05:02] LABS: Basophils Percent Auto 0.7 % (0.2-1.2); Eosinophils Absolute Auto 0.2 K/mm3 (0-0.3); Eosinophils Percent Auto 3.8 % (0-4.4); Hematocrit 29.8 % (37.0-47.0); Hemoglobin 9.2 g/dL (12.0-15.0); Immature Granulocyte Absolute 0.01 K/mm3 (0.00-0.031); Immature Granulocyte Percent A 0.2 % (0-0.5); Lymphocytes Absolute Auto 1.46 K/mm3 (0.9-3.2); Mean Corpuscular HGB Conc 30.9 g/dl (32-36); Mean Corpuscular Volume 74.5 fl (80-100); Mean Platelet Volume 9.3 fl (7.4-10.4); Monocytes Absolute Auto 0.6 K/mm3 (0.1-0.6); Monocytes Percent Auto 10.1 % (2.6-8.5); Neutrophils Absolute Auto 3.5 K/mm3 (1.3-6.7); Neutrophils Percent Auto 60.2 % (45.5-73.1); Platelet Count Result 370 k/mm3 (150-375); Red Cell Distribution Width 17.3 % (11.5-14.5); White Blood Count 5.8 K/mm3 (4.5-10.0)
[2024-03-09 05:08] LABS: Alanine Aminotransferase 17 U/L (6-35); Albumin Level 3.3 g/dL (3.5-5.1); Alkaline Phosphatase 56 U/L (38-126); Anion Gap 7 mmol/L (4-12); Aspartate Amino Transferase 27 U/L (14-36); Bilirubin,Total 0.4 mg/dL (0.2-1.3); Blood Urea Nitrogen 5 mg/dL (7-17); Calcium 8.4 mg/dL (8.4-10.2); Carbon Dioxide 24 mmol/L (22-30); Chloride 106 mmol/L (98-107); Estimated CRCL calculation 111 ml/min; Estimated Glomerular Filt Rate > 60; Glucose 77 mg/dL (65-110); Magnesium 1.5 mg/dL (1.6-2.3); Potassium 3.5 mmol/L (3.4-5.0); Sodium 137 mmol/L (137-145)
[2024-03-09 05:12] LABS: Hypochromasia 1+; Ovalocytes 1+; Platelet Estimate Adequate (Adequate); Schistocytes None Seen
[2024-03-09 05:42] VITALS: BP 139/88; PULSE 70; RESP 18; TEMP 36.4; O2SAT 98
[2024-03-09] MEDS: GABAPENTIN 100 MG CAPSULE PO ×2 (09:41→12:59)
[2024-03-09] MEDS: MAGNESIUM SULF 2 GM/WATER 50ML 2 GM/50 ML BAG IVPB (09:42)
--- NOTE | 2024-03-09 12:37 | PM.DS ---
DS: Admitting Diagnosis Discharge Date 03/09/24 Admitting Diagnosis Pancreas cyst Acute left flank pain Left-sided chest pain DS: Summary Hospital Course Reason for hospitalization: Pancreas cyst Acute left flank pain Left-sided chest pain Hospital Course: Interval history: This is a 43-year-old male presented to the hospital on 03/06/2024 with complaints of left flank pain.? Workup in the hospital included a chest x-ray which was negative.? Abdomen pelvis CT was negative for any intra-abdominal/pelvic process, indeterminate 1.5 cm cystic lesion at the body of the pancreas, cholelithiasis.? Initial labs showed a normal white blood cell count of 8.3, hemoglobin 10.5, troponin was negative, lipase was 64.? A UA was obtained and was negative for bacteria.? Patient was given 1 L of normal saline morphine and Zofran in the ED. 03/07/24: On examination today patient is alert and oriented x3, lying in the bed.? Patient denies any fever, chills, vomiting, diarrhea, abdominal pain, chest pain or shortness of breath.? Patient endorses left flank pain that feels sharp and burning across her ribs, nausea, and headache.? Labs today showed a hemoglobin of 9.7 otherwise unremarkable.? Plan for abdominal MRCP with and without contrast today and GI consulted. Patient was noted to have the start of shingles on her left flank and under her left breast in the area where she is complaining of pain. She states that she recently had a rash that was all over her body that itched but that went away and then she developed flank pain. She was started on valcyclovir TID for the next 5 days. MRCP is still pending. 03/08/24: Copy from chart This is a 43-year-old male presented to the hospital on 03/06/2024 with complaints of left flank pain.? Workup in the hospital included a chest x-ray which was negative.? Abdomen pelvis CT was negative for any intra-abdominal/pelvic process, indeterminate 1.5 cm cystic lesion at the body of the pancreas, cholelithiasis.? Initial labs showed a normal white blood cell count of 8.3, hemoglobin 10.5, troponin was negative, lipase was 64.? A UA was obtained and was negative for bacteria.? Patient was given 1 L of normal saline morphine and Zofran in the ED.She is starting to get some rash in her flank and lower rib area.? MRCP Revealed 1.7 cm cystic lesion in the body appendages with peripheral nodular hypoenhancing component.? Differential includes pseudocyst intraductal papillary mucinous neoplasm, mucinous cystic neoplasm, serous cystadenoma and neuroendocrine tumor.? GI has been consulted.? Associated cholelithiasis.These sound like incidental finding with all definitely needs follow-up evaluation as an outpatient basis.? GI has been consulted and suggest follow-up as an outpatient probably with EUS.? Left flank pain seems to be related to shingles that sees currently having.? She has been started on valacyclovir will add Cytosin. 03/09/24: Patient denies any new complaints today., magnesium 1.5, otherwise unremarkable. MRCP showed a 1.7 cm cystic lesion in the body of the pancreas with peripheral nodular hypoenhancing compartment, cholelithiasis. Rash now wrapping around back. She will need to follow up with GI in a couple weeks for further workup on an outpatient basis. Patient is stable for discharge at this time. She will need to continue her valacyclovir until completed, Neurontin, and Cytosin. She will need to follow up with her primary care physician in 1 week as well. Final diagnosis: Herpes zoster, pancreatic cyst Status at Discharge Cognitive/behavioral status at discharge: Alert oriented x3, Slovenian-speaking Functional status at discharge: independent ambulation Overall status at discharge: patient is progressing back to baseline Time Spent with Patient Time attestation: Total time spent providing and/or coordinating discharge services: Time spent: Greater than 30 minutes Exam Narrative: General: In no acute distress, well nou
[2024-03-09 13:58] VITALS: BP 130/79; PULSE 92; RESP 16; TEMP 36.8; O2SAT 99
== END 2024-03-09 14:15 | disposition home or self-care (01) ==
LOC: ANHED 23:10 → ANH2MED 03-07 00:32
PROVIDERS: Emergency Medicine; Nurse Practitioner Acute Care; Admitting Provider Internal Medicine; Emergency Provider Emergency Medicine; Visit Provider Internal Medicine
DX: B02.9 Zoster without complications (principal); K86.2 Cyst of pancreas; R07.9 Chest pain, unspecified; R11.0 Nausea; D64.9 Anemia, unspecified
CPT/HCPCS: 36415; 71046; 74176; 74183; 76376; 80053; 81003; 81025; 83690; 83735; 84484; 85025; 85610; 85730; 93005; 96361; 96374; 96375; 96376; 99285; A9270; A9577; G0378; J1741; J2270; J2405; J3475; J7030; J7120